=== PATIENT | male | born 1995 | race Caucasian/White ===

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

== ENCOUNTER 2017-10-05 10:10 | Emergency (ER) | payer OTHER ==
[~2017-10-05] VITALS: Ht 175.3 cm; Wt 80.3 kg
[~2017-10-05 10:10] MED LIST: AMOX500T2 PO; EMTR1TAB6 PO
[2017-10-05] MEDS ORDERED: ONDANSETRON ODT 4 MG TAB.RAPDIS SL ONE (10:45)
[2017-10-05] MEDS ORDERED: DIPHENOXYLATE HCL/ATROP SULF TABLET PO ONE (10:45)
[2017-10-05] MEDS ORDERED: DIPHENOXYLATE HCL/ATROP SULF TABLET ONE ×2 (10:46→11:20)
[2017-10-05] MEDS ORDERED: ONDANSETRON ODT 4 MG TAB.RAPDIS ONE (10:46)
[2017-10-05 12:34] VITALS: BP 131/89
--- NOTE | 2017-10-05 12:34 | NUR ---
Patient discharged to home in stable conditon. Written and verbal after care instructions given. Patient verbalizes understanding of instructions.
== END 2017-10-05 12:36 | disposition home or self-care (01) ==
LOC: ER 10:10
DX: K52.9 Noninfective gastroenteritis and colitis, unspecified (principal); J45.909 Unspecified asthma, uncomplicated; Z79.2 Long term (current) use of antibiotics; Z79.899 Other long term (current) drug therapy
CPT/HCPCS: A4663; Q0162

== ENCOUNTER 2018-01-29 03:56 | Emergency (ER) | payer OTHER ==
[~2018-01-29] VITALS: Ht 175.3 cm; Wt 77.3 kg
--- NOTE | 2018-01-29 04:20 | NUR ---
Dr. Fonseca at bedside for MSE.
[2018-01-29] MEDS ORDERED: DEXAMETHASONE SOD PHOSPHATE 4 MG INJ IM ONE (04:30)
[2018-01-29] MEDS ORDERED: PENICILLIN G BENZATHINE 2.4 MMU/4 ML DISP.SYRIN IM ONE ×2 (04:30→04:32)
[2018-01-29] MEDS ORDERED: DEXAMETHASONE SOD PHOSPHATE 4 MG INJ ONE (04:33)
--- NOTE | 2018-01-29 04:44 | NUR ---
Patient discharged to home in stable conditon. Written and verbal after care instructions given. Patient verbalizes understanding of instructions. Patient ambulated out of ER with steady gait, no acute signs of distress, VSS, all belongings taken.
[2018-01-29 04:46] VITALS: BP 119/88
== END 2018-01-29 04:47 | disposition home or self-care (01) ==
LOC: ER 03:59
DX: J03.90 Acute tonsillitis, unspecified (principal); J45.909 Unspecified asthma, uncomplicated
CPT/HCPCS: 96372 ×2; 99284; A4663; J1100